=== PATIENT | male | born 1940 | race Caucasian/White ===

== ENCOUNTER 2018-03-07 11:06 | Day surgery (SDC) | payer MEDICARE, MEDICAID ==
[~2018-03-07] VITALS: Ht 170.2 cm; Wt 72.6 kg
[2018-03-07] MEDS ORDERED: ONDANSETRON HCL 4 MG/2 ML VIAL IVP PRN ×2 (13:15→14:00)
[2018-03-07] MEDS ORDERED: KETOROLAC TROMETHAMINE 30 MG VIAL IVP PRN (13:15)
[2018-03-07] MEDS ORDERED: fentaNYL CITRATE/PF 100 MCG/2 ML AMP IVP PRN ×2 (13:15)
[2018-03-07] MEDS ORDERED: CEFAZOLIN 2 GM IVPB PREMIX 50 ML IV ONE (14:00)
[2018-03-07] MEDS ORDERED: SEVOFLURANE 15 MIN GAS INH ONE (14:00)
[2018-03-07] MEDS ORDERED: fentaNYL CITRATE/PF 100 MCG/2 ML AMP ONE ×2 (14:00→14:31)
[2018-03-07] MEDS ORDERED: PROPOFOL 200MG/ 20ML VIAL (DIPRIVAN) IV ONE (14:00)
[2018-03-07] MEDS ORDERED: MORPHINE 4 MG/ML INJ. SYRINGE IVP PRN (14:00)
[2018-03-07] MEDS ORDERED: MIDAZOLAM HCL 5 MG/ML VIAL (VERSED) IV ONE (14:00)
[2018-03-07] MEDS ORDERED: BUPIVACAINE LIPOSOME/PF 266 MG/20 ML VIAL INFIL ONE (14:00)
[2018-03-07] MEDS ORDERED: NS IRRIG SOLN 1000 ML IR ONE (14:00)
[2018-03-07] MEDS ORDERED: LR 1,000 ML IV.SOLN IV ONE (14:00)
[2018-03-07] MEDS ORDERED: ACETAMINOPHEN/CODEINE 300 MG-30 MG TABLET PO PRN (14:00)
[2018-03-07 14:59] VITALS: BP_SYST 127
[2018-03-07] MEDS ORDERED: KETOROLAC TROMETHAMINE 30 MG VIAL ONE (16:47)
== END 2018-03-07 17:35 | disposition home or self-care (01) ==
LOC: SDS 11:06 → SMU 11:07 → SDS 17:35
PROVIDERS: ATTEND Surgery
DX: K40.30 Unilateral inguinal hernia, with obstruction, without gangrene, not specified as recurrent (principal); K21.9 Gastro-esophageal reflux disease without esophagitis; M19.90 Unspecified osteoarthritis, unspecified site
CPT/HCPCS: 49507; C1781; C9290; J0690; J1885; J2250; J2704; J3010; J7120